=== PATIENT | female | born 1945 | race Caucasian/White ===

== ENCOUNTER 2020-12-05 09:15 | Outpatient (CLI) | payer MEDICARE, BC | END 2020-12-05 09:16 | disposition home or self-care (01) | LOC: CSHCT 09:15 | PROVIDERS: ATTEND Internal Medicine Hematology & Oncology | DX: C18.7 Malignant neoplasm of sigmoid colon (principal); M16.0 Bilateral primary osteoarthritis of hip; R93.89 Abnormal findings on diagnostic imaging of other specified body structures | CPT/HCPCS: 71260; 74177 ==

== ENCOUNTER 2021-12-13 09:50 | Outpatient (CLI) | payer MEDICARE, BC ==
[2021-12-13] MEDS ORDERED: Iopamidol 370 76% 100 ML VIAL ONE (14:45)
== END 2021-12-13 09:51 | disposition home or self-care (01) ==
LOC: CSHCT 09:50
PROVIDERS: ATTEND Internal Medicine Hematology & Oncology
DX: C18.9 Malignant neoplasm of colon, unspecified (principal); R97.0 Elevated carcinoembryonic antigen [CEA]; E66.9 Obesity, unspecified
CPT/HCPCS: 71260; 74177; 82565; Q9967

== ENCOUNTER 2022-12-05 09:13 | Outpatient (CLI) | payer MEDICARE, BC ==
[2022-12-05] MEDS ORDERED: Iopamidol 300 61% 100 ML VIAL FS ONE (12:29)
== END 2022-12-05 09:14 | disposition home or self-care (01) ==
LOC: CSHCT 09:13
PROVIDERS: ATTEND Internal Medicine Hematology & Oncology
DX: C18.9 Malignant neoplasm of colon, unspecified (principal)
CPT/HCPCS: 71260; 74177

== ENCOUNTER 2025-02-16 21:32 | Emergency (ER) | payer MEDICARE ==
[~2025-02-16 21:32] MED LIST: Iopamidol 300 61% 100 ML VIAL FS ONE
[2025-02-16 22:14] LABS: Hematocrit 32.4 % (34.9-44.5); Hemoglobin 10.9 g/dL (12.0-15.5); Mean Corpuscular Hemoglobin 29.9 pg (27.0-33.0); Mean Corpuscular Volume 88.8 fL (81.6-98.3); Platelet Count 151 10x3/uL (150-450); Red Blood Cell (RBC) Count 3.65 10x6/uL (3.90-5.03); White Blood Cell (WBC) Count 34.60 10x3/uL (3.5-10.5)
[2025-02-16 22:23] LABS: ALT (SGPT) 120 U/L (Less than 34); AST (SGOT) 90 U/L (11-34); Albumin 2.3 g/dL (3.1-4.5); Alkaline Phosphatase 356 U/L (40-110); Anion Gap 16 mmol/L (10-20); BUN (Urea Nitrogen) 38 mg/dL (9.8-20.1); Bilirubin, Total 1.7 mg/dL (0.3-1.2); Calc. Creatinine Clearance 0 mL/min (70-130); Calcium 8.0 mg/dL (7.8-10.44); Carbon Dioxide 20 mmol/L (23-31); Chloride 100 mmol/L (98-107); Globulin 3.5 g/dL (2.4-3.5); Glucose 125 mg/dL (83-110); Potassium 3.5 mmol/L (3.5-5.1); Sodium 132 mmol/L (136-145)
[2025-02-16 22:36] LABS: MDiff Complete? YES; Platelet Adequacy Comment Appears Adequate; RBC Morphology Within Normal Limits
[2025-02-16 22:55] LABS: Troponin I 0.047 ng/mL (< 0.028)
[2025-02-16 23:19] LABS: Glucose, Urine (Dipstick) Normal (Negative); Leukocyte 500 (Negative); Protein, Urine (Dipstick) 100 mg/dl (Neg-Trace); Specific Gravity, Urine 1.025 (1.005-1.030)
[2025-02-16 23:27] LABS: Bacteria/HPF 4+ HPF (None Seen); CAUTI Indications for Culture Dysuria,urgency,freq; WBC/HPF Greater than 50 HPF (0-3)
[2025-02-16 23:29] LABS: Urine Culture Reflex Yes Yes
[2025-02-17] MEDS ORDERED: cefTRIAXone (ROCEPHIN) 1 GM VIAL ONE (00:25)
== END 2025-02-17 02:07 | disposition short-term general hospital (02) ==
LOC: CSHERS 21:32
DX: N13.2 Hydronephrosis with renal and ureteral calculous obstruction (principal); N17.9 Acute kidney failure, unspecified; N39.0 Urinary tract infection, site not specified; D72.829 Elevated white blood cell count, unspecified
CPT/HCPCS: 74177; 80053; 81001; 83605; 83690; 84484; 85025; 87040; 87077; 87086; 93005; J0696; Q9967; 36415; 87186; 96374